=== PATIENT | male | born 1995 | race Hispanic/Latino ===

== ENCOUNTER 2017-06-24 20:52 | Emergency (ER) | payer OTHER | END 2017-06-24 21:30 | disposition short-term general hospital (02) | LOC: ER 20:52 | DX: R51 Headache (principal) ==

== ENCOUNTER 2017-06-24 21:18 | Emergency (ER) | payer OTHER ==
[~2017-06-24] VITALS: Ht 175.3 cm; Wt 124.3 kg
[2017-06-24] MEDS ORDERED: ONDANSETRON HCL INJ 2 MG/ML VIAL IV STA (21:46)
[2017-06-24] MEDS ORDERED: MORPHINE SULFATE 5 MG/ML VIAL IV ONE (22:00)
[2017-06-24] MEDS ORDERED: SODIUM CHLORIDE 0.9% 1000ML 1,000 ML IV SCH (22:00)
[2017-06-24] MEDS ORDERED: MORPHINE SULFATE 4 MG/ML SYR IV PRN (22:30)
[2017-06-24] MEDS ORDERED: ACETAMINOPHEN 325 MG TAB PO ONE (22:45)
== END 2017-06-24 23:35 | disposition home or self-care (01) ==
LOC: FSED 21:18
DX: G43.909 Migraine, unspecified, not intractable, without status migrainosus (principal); J01.00 Acute maxillary sinusitis, unspecified; J01.10 Acute frontal sinusitis, unspecified; J02.9 Acute pharyngitis, unspecified
CPT/HCPCS: 70450; 80053; 80307; 81003; 82553; 84484; 85025; 93005; 99284; J2270; J2405